=== PATIENT | female | born 1980 | race Hispanic/Latino ===

== ENCOUNTER 2017-08-21 03:13 | Inpatient (IN) | payer MEDICAID ==
--- NOTE | 2017-08-21 04:08 | ED PDOC ---
Addendum entered and electronically signed by Shola Jose MD 08/21/17 06:35: - PA / STUDENT DEAN / Resident Statement STEPHENIE has reviewed & agrees with the documentation as recorded. STEPHENIE has examined the patient and agrees with the treatment plan. Original Note: Arrival/HPI - General Historian: Patient - History of Present Illness Time/Duration: 24 hours Symptom Onset: Gradual Symptom Course: Unchanged Activities at Onset: Rest, Light Context: Home - General Chief Complaint: Psychiatric Evaluation Time Seen by Provider: 08/21/17 03:47 - History of Present Illness Narrative History of Present Illness (Text): 08/21/17 03:58 Ms. Meneses is a 37 year old female with no significant past medical history presents to the [facility] for anxiety. Patient reports that she has been anxious for several days about "getting back together with my family". Patient offered no further details about this topic. She reports that she has been living in a usp in [place] for the past two months. She denies any homicidal or suicidal ideation, depressed mood, or any auditory/visual hallucinations. She also denies fever, chills, headache, changes in his vision, chest pain, palpitations, SOB, cough, abdominal pain, N/V/D/C, burning/pain with urination, rashes, or any numbness/tingling/weakness of any extremity. ( Simón Mcdonald) Past Medical History - Provider Review Nursing Documentation Reviewed: Yes - Travel History Have you recently traveled outside [place] w/in the past 3 mons?: No - Past History Past History: No Previous - Infectious Disease Hx of Infectious Diseases: None - Tetanus Immunization Tetanus Immunization: Unknown - Reproductive Menopause: No - Cardiac Hx Cardiac Disorders: No - Pulmonary Hx Respiratory Disorders: No - Neurological Hx Neurological Disorder: No - HEENT Hx HEENT Disorder: No - Renal Hx Renal Disorder: No - Endocrine/Metabolic Hx Endocrine Disorders: No - Hematological/Oncological Hx Blood Disorders: No - Integumentary Hx Dermatological Disorder: No - Musculoskeletal/Rheumatological Hx Musculoskeletal Disorders: No - Gastrointestinal Hx Gastrointestinal Disorders: No - Genitourinary/Gynecological Hx Genitourinary Disorders: No - Psychiatric Hx Psychophysiologic Disorder: Yes Hx Anxiety: Yes Hx Substance Use: No - Surgical History Hx Section: Yes (x 2) Family/Social History - Physician Review Nursing Documentation Reviewed: Yes Family/Social History: No Known Family HX Smoking Status: Never Smoked Hx Alcohol Use: No Hx Substance Use: No Allergies/Home Meds Allergies/Adverse Reactions: Allergies No Known Allergies Allergy (Verified 08/21/17 03:47) Home Medications: Home Meds Medication Instructions Recorded Confirmed No Known Home Med 08/21/17 08/21/17 Review of Systems - Physician Review All systems were reviewed & negative as marked: Yes - Review of Systems Constitutional: Normal. absent: Fevers, Night Sweats Eyes: Normal. absent: Vision Changes ENT: Normal Respiratory: Normal. absent: SOB, Cough Cardiovascular: Normal. absent: Chest Pain, Palpitations Gastrointestinal: Normal. absent: Abdominal Pain, Constipation, Diarrhea, Nausea, Vomiting Genitourinary Female: Normal. absent: Dysuria Musculoskeletal: Normal. absent: Back Pain, Neck Pain Skin: Normal. absent: Rash Neurological: Normal. absent: Headache Endocrine: Normal Hemo/Lymphatic: Normal Psychiatric: Anxiety. absent: Normal, Depression, Suicidal Ideation Physical Exam Vital Signs Reviewed: Yes Temperature: Afebrile Blood Pressure: Normal Pulse: Regular Respiratory Rate: Normal Appearance: Positive for: Well-Appearing, Non-Toxic, Comfortable Pain Distress: None Mental Status: Positive for: Alert and Oriented X 3 - Systems Exam Head: Present: Atraumatic, Normocephalic Pupils: Present: PERRL Extroacular Muscles: Present: EOMI Conjunctiva: Present: Normal Mouth: Present: Moist Mucous Membranes Neck: Present: Normal Range of Motion, Trachea Midline. No: Meningeal Signs, MIDLINE TENDERNESS, Paraspinal Tenderness, JVD, Lymphadenopathy Respiratory/Chest: Present: Clear to Auscultation, Good Air Exchange. No: Respiratory Distress, Accessory Muscle Use, Wheezes, Decreased Breath Sounds, Rales, Retracting, Rhonchi, Tachypneic Cardiovascular: Present: Regular Rate and Rhythm, Normal S1, S2, Peripheal Pulses Present. No: Murmurs, Irregular Rhythm, Tachycardic, Bradycardic, Rub, Gallop, Muffled Abdomen: Present: Normal Bowel Sounds. No: Tenderness, Distention, Peritoneal Signs Back: Present: Normal Inspection Upper Extremity: Present: Normal Inspection. No: Cyanosis, Edema Lower Extremity: Present: Normal Inspection. No: Edema Neurological: Present: GCS=15, CN II-XII Intact, Speech Normal Skin: Present: Warm, Dry, Normal Color. No: Rashes Psychiatric: Present: Alert, Oriented x 3, Normal Insight, Normal Concentration , Anxious. No: Agitated, Depressed Mood, Suicidal Ideation, Homicidal Ideation , Delusional, Hallucinations, Intoxicated, Lethargic Vital Signs Temp Pulse Resp BP Pulse Ox 08/21/17 03:20 98.2 F 86 19 105/64 97 Medical Decision Making ED Course and Treatment: Patient Seen With Resident: In agreement with resident note which contains more details about the patient. Patient was seen and evaluated with resident. Came up with plan and treatment together. A 37 year old female with anxiety. Additional HPI as noted by resident. Patient is anxious on physical exam. Ordered EKG, labs and urinalysis. PES will evaluate patient. (Shola Jose) 08/21/17 04:10 Impression: 37 year old female with no significant past medical history presents to the [facility] for anxiety Plan: -PES evaluation with appropriate labs ordered -Reassess and disposition Prior Visits: No previous visits 08/21/17 06:13 PES reports that patient will sign in to psychiatric unit voluntarily. Pending approval from psych attending. (Simón Mcdonald) - Lab Interpretations Lab Results: 08/21/17 04:38 08/21/17 04:38 Lab Results 08/21/17 04:48: Urine Color Yellow, Urine Appearance Sl cloudy, Urine pH 6.0, Ur Specific [place] <= 1.005, Urine Protein Negative, Urine Glucose (UA) Negative, Urine Ketones Negative, Urine Blood Small H, Urine Nitrate Negative, Urine Bilirubin Negative, Urine Urobilinogen 0.2, Ur Leukocyte Esterase Moderate H, Urine RBC 0 - 2, Urine WBC 5 - 10, Ur Epithelial Cells 1 - 3, Urine Bacteria Few, Urine HCG, Qual Negative 08/21/17 04:48: Urine Opiates Screen Negative, Urine Methadone Screen Negative, Ur Barbiturates Screen Negative, Ur Phencyclidine Scrn Negative, Ur Amphetamines Screen Negative, U Benzodiazepines Scrn Negative, U Oth Cocaine Metabols Negative, U Cannabinoids Screen Negative 08/21/17 04:38: Alcohol, Quantitative < 10 08/21/17 04:38: Salicylates < 1 L, Acetaminophen < 10.0 L 08/21/17 04:38: Sodium 140, Potassium 3.4 L, Chloride 104, Carbon Dioxide 28, Anion Gap 12, BUN 11, Creatinine 0.7, Est GFR ( Amer) > 60, Est GFR (Non- Af Amer) > 60, Random Glucose 105, Calcium 9.1, Total Bilirubin 0.4, AST 18, ALT 21, Alkaline Phosphatase 44, Total Protein 6.7, Albumin 3.9, Globulin 2.9, Albumin/Globulin Ratio 1.4 08/21/17 04:38: WBC 10.1, RBC 3.85, Hgb 12.1, Hct 36.3, MCV 94.3, MCH 31.4, MCHC 33.3, RDW 12.6, Plt Count 289, MPV 10.6, Gran % 70.0 H, Lymph % (Auto) 22.5 , [place] % (Auto) 4.8, Eos % (Auto) 2.3, Baso % (Auto) 0.4, Gran # 7.06 H, Lymph # 2.3, [place] # 0.5, Eos # 0.2, Baso # 0.04 Disposition/Present on Arrival - Present on Arrival Any Indicators Present on Arrival: No History of DVT/PE: No History of Uncontrolled Diabetes: No Urinary Catheter: No History of Decub. Ulcer: No History Surgical Site Infection Following: Obstetrical/Gynecological Surgery - Disposition Have Diagnosis and Disposition been Completed?: Yes Disposition Time: 06:15 Patient Plan: Admission - Disposition Diagnosis: Anxiety Disposition: HOSPITALIZED Condition: STABLE Forms: [employer] (Nepali)
[2017-08-21 04:49] LABS: BASO # 0.04 K/mm3 (0.0-2.0); BASO % 0.4 % (0.0-3.0); EOS # 0.2 (0.0-0.7); EOS % 2.3 % (1.5-5.0); GRAN # 7.06 (1.4-6.5); HEMATOCRIT 36.3 % (36.0-48.0); LYMPH # 2.3 (1.2-3.4); LYMPH % 22.5 % (22.0-35.0); MEAN CELL VOLUME 94.3 fl (80.0-105.0); MEAN CORPUSCULAR HEMOGLOBIN 31.4 pg (25.0-35.0); MEAN CORPUSCULAR HGB CONC 33.3 g/dl (31.0-37.0); MEAN PLATELET VOLUME 10.6 fl (7.0-11.0); MONO # 0.5 (0.1-0.6); MONO % 4.8 % (1.0-6.0); RED CELL DISTRIBUTION WIDTH 12.6 % (11.5-14.5); WHITE BLOOD COUNT 10.1 10^3/ul (4.5-11.0)
[2017-08-21 05:03] LABS: ALB/GLOB RATIO 1.4 (1.1-1.8); ALKALINE PHOSPHATASE 44 U/L (38-126); ALT/SGPT 21 U/L (7-56); AST/SGOT 18 U/L (14-36); BILIRUBIN,TOTAL 0.4 mg/dL (0.2-1.3); BLOOD UREA NITROGEN 11 mg/dL (7-21); CALCIUM 9.1 mg/dL (8.4-10.5); CARBON DIOXIDE 28 mmol/L (21-33); CHLORIDE 104 mmol/L (98-107); GFR AFRICAN-AMERICAN > 60; GLUCOSE,RANDOM 105 mg/dL (70-110); POTASSIUM 3.4 mmol/L (3.6-5.0); SODIUM 140 mmol/L (132-148); TOTAL PROTEIN 6.7 g/dL (5.8-8.3)
[2017-08-21 05:07] LABS: URINE BILIRUBIN NEGATIVE (NEGATIVE); URINE BLOOD SMALL (NEGATIVE); URINE GLUCOSE (UA) NEGATIVE (NEGATIVE); URINE KETONE NEGATIVE (NEGATIVE); URINE LEUKOCYTE ESTERASE MODERATE Leu/uL (NEGATIVE); URINE PROTEIN NEGATIVE mg/dL (<30 mg/dL); URINE UROBILINOGEN 0.2 E.U./dL (<1 E.U./dL)
[2017-08-21 05:14] LABS: URINE APPEARANCE SL CLOUDY (CLEAR); URINE COLOR YELLOW (YELLOW)
[2017-08-21 05:22] LABS: URINE BACTERIA FEW (NEG); URINE RBC 0 - 2 /hpf (0-2)
[2017-08-21 08:10] VITALS: O2SAT 98
--- NOTE | 2017-08-21 09:51 | CARD ---
APPROVED REPORT EKG Measurement Heart [id number] HI [id number] <Conclusion> Normal sinus rhythm Possible Left atrial enlargement Nonspecific T wave abnormality Abnormal ECG
[2017-08-21] MEDS ORDERED: Magnesium Hydroxide Susp 30 ml UD PO PRN (10:08)
[2017-08-21] MEDS ORDERED: Alum-Mag Hydrox-Simethicone Susp (30 mL) PO PRN (10:08)
--- NOTE | 2017-08-21 10:17 | PCM.BM ---
<Jason Hines - Last Filed: 08/21/17 10:14> Treatment Plan Problems - Problems identified on initial assessmt delusional Date Initiated: 08/21/17 Time Initiated: 10:00 Assessment reference: NA Status: Active Priority: 1 Comment: Hearing voices Depression Date Initiated: 08/21/17 Time Initiated: 10:00 Assessment reference: NA Status: Active Priority: 2 Comment: Ineffective coping,hopeless and helpless medications non-adherence Date Initiated: 08/21/17 Time Initiated: 10:00 Assessment reference: NA Status: Active Priority: 3 Comment: no taking her medications Altered sleep patter Date Initiated: 08/21/17 Time Initiated: 10:00 Assessment reference: NA Status: Active Priority: 4 Treatment assets and liabiliti Patient Assests: ADL independent, negotiates basic needs Patient Liabilities: poor support system, relationship conflicts - Milieu Protocol Maintain good personal hygiene: daily Remind patient to perform daily oral care , daily Assist patient to perform ADL's, every shift Encourage regular showers Conduct patient checks and document Observation sheet: Q15 minutes Maintain personal safety: every shift Educate patient to report safety concerns to staff, every shift Monitor environment for contraband/sharps Medication safety: Monitor for expected outcome, potential side effects: every shift, Assess barriers to learning: every shift, Assess readiness for medication education: every shift Discharge/Continuing Care - Education Needs Education Needs: Patient Medication, Patient Diagnosis/Disease Process, Patient Coping Skills, Patient Community resources, Patient Activities of Daily Living, Patient Personal Hygiene/Grooming, Patient Aftercare Safety Plan - Discharge Discharge Criteria: Tolerates medication w/o severe side effects, Normal sleep pattern, Ability to care for self, Reduction of target symptoms <Candice Bonilla - Last Filed: 08/22/17 16:33> Family Contact Family involvement: Famliy/SO not involved - Outside Agency [facility] involvment: Information-sharing Agency contact name: [facility] - Goals for Treatment Patient goals for treatment: "To find housing."
--- NOTE | 2017-08-21 15:22 | PCM.PSYCH ---
Initial Psychiatric Evaluation - Initial Psychiatric Evaluation Type of Admission: Voluntary Legal Status: Capacity Chief Complaint (in patient's own words): "I stopped taking my medication 2 weeks ago" Patient's Reaction to Hospitalization: "I am so tired, do we really have to do this now...I haven't been sleeping" History of Present Illness and Precipitating Events: NOTE: Patient is a poor historian, is tired and just short of uncooperative. Patient is a 37 year old female admitted from the ER for complaint of anxiety. Patient indicates that she stopped taking her psychiatric medication 2 weeks ago. She sees a Dr Langley from [facility] Her diagnosis are "Bipolar and Paranoid Schizophrenia". She has been stabilized for a long period of time on Zyprexa 10mg 1 BID. She has been sober off alcohol for the last 64 days, sober off diet pills (Zantrax) for 64 days also. She goes to 3x a week and has a sponsor. She has a history of multiple hospitalizations starting at age 15, and 3 overdoses on pills. Alcohol has played a part in all of her hospitalizations and suicide attempts. She denies any medical issues. She indicates all of her relatives use drugs and alcohol. Patient declines to answer further questions at this time. Patient is somewhat groggy, but oriented x3 eye contact is poor, behavior is just short of cooperative. She is not hostile or argumentative just indicates prior to admission she had not been sleeping and she was very fatigued. Speech rate and volume are within normal limits, mood is blunted, affect is constricted though she smiles when she shares her sobriety dates, appropriately. She denies being suicidal or homicidal, she denies the presence of hallucinations, delusions, or paranoia. She indicates her focus and concentration are off as well as her sleep and her appetite. Plan: Milieu/structure/supportive therapy Medical consult appreciated, see medical team note for more detailed info consultation for discharge plan and social issues Med management Family involvement Follow up on labs Will monitor closely evaluation for d/c planning Pt was educated about risk/benefits and alternatives of medications, coping strategies (safety plan, suicide prevention), relapse prevention, importance of follow up with psychiatrist and therapist, stay away from drugs/alcohol/smoking Diagnostic Impression: Depressive Disorder NOS Current Medications: Active Medications Generic Name Dose Route Start Last Admin Trade Name Freq PRN Reason Stop Dose Admin Acetaminophen 650 mg 08/21/17 10:08 Tylenol 325mg Tab PO Q4 PRN pain Al Hydrox/Mg Hydrox/Simethicone 30 ml 08/21/17 10:08 Maalox Plus 30 Ml PO DAILY PRN Upset Stomach Lorazepam 1 mg 08/21/17 09:56 Ativan PO Q6H PRN Agitation Protocol Magnesium Hydroxide 30 ml 08/21/17 10:08 Milk Of Magnesia PO DAILY PRN Constipation Olanzapine 10 mg 08/21/17 10:00 08/21/17 10:18 Zyprexa PO 10 mg BID KIRK Administration Protocol Past Psychiatric History - Past Psychiatric History Pertinent Medical Hx (Current Medical&Sleep Prob, Allergies): Allergies Allergy/AdvReac Type Severity Reaction Status Date / Time No Known Allergies Allergy Verified 08/21/17 11:52 OLANZapine [ZyPREXA] 10 mg PO BID 08/21/17
[2017-08-22] MEDS ORDERED: Potassium Chloride 20 mEq ER Tab PO ONE (07:16)
[2017-08-22 07:56] LABS: CHOLESTEROL 269 mg/dL (130-200)
[2017-08-22 08:18] LABS: THYROID STIMULATING HORMONE 0.59 mIU/mL (0.46-4.68)
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
[2017-08-22 09:45] LABS: BLOOD UREA NITROGEN 12 mg/dL (7-21); CALCIUM 9.5 mg/dL (8.4-10.5); CARBON DIOXIDE 27 mmol/L (21-33); CHLORIDE 107 mmol/L (98-107); GFR AFRICAN-AMERICAN > 60; GLUCOSE,RANDOM 85 mg/dL (70-110); POTASSIUM 4.2 mmol/L (3.6-5.0); SODIUM 142 mmol/L (132-148)
--- NOTE | 2017-08-23 08:30 | PCM.PYCHPN ---
Psychiatric Progress Note - Psychiatric Progress Note Patient seen today, length of contact: 25 min Patient Chief Complaint: feeling better, more hopeful, anxiety persists Problems Identified/Issues Discussed: I reviewed assessment and recent notes. Patient was seen at bedside. She is unkempt and oriented x3. Patient indicates that she is feeling better, more hopeful. Anxiety persists. Her affect is constricted and tired. Thought process is coherent. Patient denies any perceptual disturbance and delusions were not elicited. She doesn't appear paranoid. Patient denies any new side effects, discomfort or pain. She slept well last night. Staff notes indicate that patient has been in control. Refused group due to exhaustion and stays in her room. Compliant with medications. There were no behavioral issues overnight. Diagnostic Results: Schizoaffective Disorder (Paranoid Schizophrenia/Bipolar) Medication Change: No Medical Record Reviewed: Yes Mental Status Examination - Cognitive Function Orientation: Person, Place Attention: WNL - Mood Mood: Anxious (feeling better, more hopeful, anxiety persists) - Affect Affect: Constricted - Speech Speech: Appropriate - Formal Thought Process Formal Thought Process: No Impairment - Suicidal Ideation Suicidal Ideation: No - Homicidal Ideation Homicidal Ideation: No Goal/Treatment Plan - Goal/Treatment Plan Progress Toward Problem(s) and Goals/Treatment Plan: * c/w group, milieu and supportive tx * c/w Zyprexa 10 mg po bid for hx of schizophrenia * Appreciate f/u by Dr. Salamanca/Dr. Sheehan PGY2 on 08/22/17~please see medical note for more details * Vitals reviewed and noted below: Selected Entries 08/22/17 08/22/17 06:49 15:00 Temperature 98.3 F Pulse Rate 66 75 Respiratory 20 Rate Blood Pressure 97/68 L 111/75 * New weekend labs thus far Laboratory Results - last 24 hr 08/22/17 08/22/17 07:30 07:30 Sodium 142 Potassium 4.2 Chloride 107 Carbon Dioxide 27 Anion Gap 13 BUN 12 Creatinine 0.9 Est GFR ( Amer) > 60 Est GFR (Non-Af Amer) > 60 Random Glucose 85 Calcium 9.5 RPR Nonreactive
--- NOTE | 2017-08-24 08:45 | PCM.PYCHPN ---
Psychiatric Progress Note - Psychiatric Progress Note Patient seen today, length of contact: 25 min Patient Chief Complaint: "feeling better, pretty good" Problems Identified/Issues Discussed: I reviewed recent notes and patient was seen at bedside. She is fairly groomed m and oriented x3. Patient indicates that she is "feeling better, pretty good". She is more hopeful. Anxiety persists and patient is worried about where she will live with her 3 year old daughter, Tammy after discharge. Her affect is more related and reactive than yesterday. Thought process is coherent. Patient denies any perceptual disturbance and delusions were not elicited. She doesn't appear paranoid. Patient denies any new side effects, discomfort or pain. She slept well last night. Staff notes indicate that patient has been in control. Seems anxious and paranoid. Some delusions were noted by nursing though patient can be redirected. There were no behavioral issues over the weekend. Diagnostic Results: Schizoaffective Disorder (Paranoid Schizophrenia/Bipolar) Medication Change: No Medical Record Reviewed: Yes Mental Status Examination - Cognitive Function Orientation: Person, Place Attention: WNL - Mood Mood: Anxious ( worried about disposition), Other ("feeling better, pretty good ") - Affect Affect: Constricted (more related and reactive) - Speech Speech: Appropriate - Formal Thought Process Formal Thought Process: No Impairment, Delusions (noted by staff), Paranoia ( noted by staff) - Suicidal Ideation Suicidal Ideation: No - Homicidal Ideation Homicidal Ideation: No Goal/Treatment Plan - Goal/Treatment Plan Progress Toward Problem(s) and Goals/Treatment Plan: * c/w group, milieu and supportive tx * c/w Zyprexa 10 mg po bid for hx of schizophrenia * Appreciate f/u by Dr. Salamanca/Dr. Sheehan PGY2 on 08/22/17~please see medical note for more details * Vitals reviewed and noted below: Selected Entries 08/23/17 08/23/17 06:50 16:10 Temperature 98.1 F Pulse Rate 68 91 H Respiratory 20 Rate Blood Pressure 94/61 L 115/81 * New weekend labs thus far Laboratory Results - last 24 hr 08/22/17 08/22/17 07:30 07:30 Sodium 142 Potassium 4.2 Chloride 107 Carbon Dioxide 27 Anion Gap 13 BUN 12 Creatinine 0.9 Est GFR ( Amer) > 60 Est GFR (Non-Af Amer) > 60 Random Glucose 85 Calcium 9.5 RPR Nonreactive
--- NOTE | 2017-08-25 21:42 | PCM.PYCHPN ---
Psychiatric Progress Note - Psychiatric Progress Note Patient seen today, length of contact: 25 min Patient Chief Complaint: "I am doing better, I just want my daughter back" Problems Identified/Issues Discussed: Patient is affectively improved, hygiene and grooming are appropriate. Patient continues anxious in regards to discharge plans and where she will live with her daughter on discharge. She is childlike and concrete in conversation. She participates in unit activities and appears to enjoy contact. The staff have noticed some confusion periodically but she responds to redirection easily. Medication Change: No Medical Record Reviewed: Yes Mental Status Examination - Cognitive Function Orientation: Person, Place Attention: WNL - Mood Mood: Anxious ( worried about disposition), Other ("feeling better, pretty good ") - Affect Affect: Constricted (more related and reactive) - Speech Speech: Appropriate - Formal Thought Process Formal Thought Process: No Impairment, Delusions (noted by staff), Paranoia ( noted by staff) - Suicidal Ideation Suicidal Ideation: No - Homicidal Ideation Homicidal Ideation: No
[2017-08-26 07:02] VITALS: BP 73/52; PULSE 69; RESP 20; TEMP 98.1
--- NOTE | 2017-08-27 10:03 | PCM.PYCHPN ---
Psychiatric Progress Note - Psychiatric Progress Note Patient seen today, length of contact: 25 min Patient Chief Complaint: "I get confiused sometimes" Problems Identified/Issues Discussed: Note: This note is for a contact which took place on 08/22/2017 Patient is seen today in treatment team. She is sad and tearful in discussion of the events that lead to her loss of custody of her daughter. [facility] is involved. Hospitalization was precipitated by patient stopping her medication. She is concrete and simplistic in conversation, is interested in concrete social media specialist primarily such as arranging housing and assistance. She is invested in remaining sober, affectively improves when talking about her sobriety. Staff have noticed some confusion periodically but she is easily directable. Medication Change: No Medical Record Reviewed: Yes Mental Status Examination - Cognitive Function Orientation: Person, Place Attention: WNL - Mood Mood: Anxious ( worried about disposition), Other ("feeling better, pretty good ") - Affect Affect: Constricted (more related and reactive) - Speech Speech: Appropriate - Formal Thought Process Formal Thought Process: No Impairment, Delusions (noted by staff), Paranoia ( noted by staff) - Suicidal Ideation Suicidal Ideation: No - Homicidal Ideation Homicidal Ideation: No
--- NOTE | 2017-08-27 10:27 | PCM.PYCHDC ---
Mental Status Examination - Mental Status Examination Orientation: Person, Place, Situation, Time Memory: Intact Mood: Neutral Affect: Broad Speech: Appropriate Attention: WNL Concentration: WNL Association: WNL Fund of Knowledge: Poor Formal Thought Process: No Impairment Description of patient's judgement and insight: Patient denies being suicidal or homicidal and is in no imminent danger of hurting herself or others. Discharge Summary - Discharge Note Reason for Hospitalization: "I am so tired, do we really have to do this now...I haven't been sleeping" Consultations:: List each consultation separately and include: 1. Reason for request. 2. Findings. 3. Follow-up Summary of Hospital Course include:: 1. Description of specific treatment plan utilized for patients during their course of treatmen. 2. Summarize the time- course for resolution of acute symptoms and/or regressed behaviors. 3. Describe issues identified and worked on during hospitalization. 4. Describe medication utilized. 5. Describe medical problems identified and treated. 6. Reassessment of suicide risk Summary of Hospital Course: NOTE: Patient is a poor historian, is tired and just short of uncooperative. Patient is a 37 year old female admitted from the ER for complaint of anxiety. Patient indicates that she stopped taking her psychiatric medication 2 weeks ago. She sees a Dr Langley from [facility]. Her diagnosis are "Bipolar and Paranoid Schizophrenia". She has been stabilized for a long period of time on Zyprexa 10mg 1 BID. She has been sober off alcohol for the last 64 days, sober off diet pills (Zantrax) for 64 days also. She goes to 3x a week and has a sponsor. She has a history of multiple hospitalizations starting at age 15, and 3 overdoses on pills. Alcohol has played a part in all of her hospitalizations and suicide attempts. She denies any medical issues. She indicates all of her relatives use drugs and alcohol. Patient declines to answer further questions at this time. Patient is somewhat groggy, but oriented x3 eye contact is poor, behavior is just short of cooperative. She is not hostile or argumentative just indicates prior to admission she had not been sleeping and she was very fatigued. Speech rate and volume are within normal limits, mood is blunted, affect is constricted though she smiles when she shares her sobriety dates, appropriately. She denies being suicidal or homicidal, she denies the presence of hallucinations, delusions, or paranoia. She indicates her focus and concentration are off as well as her sleep and her appetite. Plan: Milieu/structure/supportive therapy Medical consult appreciated, see medical team note for more detailed info consultation for discharge plan and social issues Med management Family involvement Follow up on labs Will monitor closely evaluation for d/c planning Pt was educated about risk/benefits and alternatives of medications, coping strategies (safety plan, suicide prevention), relapse prevention, importance of follow up with psychiatrist and therapist, stay away from drugs/alcohol/smoking - Final Diagnosis (DSM 5) Condition upon Discharge: STABLE Disposition: HOME/ ROUTINE Prescriptions/Medication Reconciliation: Nitrofurantoin Macrocrystals [Macrobid] 100 mg PO Q12 #14 cap OLANZapine [Zyprexa] 10 mg PO BID #14 tab
== END 2017-08-26 15:32 | disposition home or self-care (01) | DRG 430 ==
LOC: ED 03:13 → ERH 06:30 → PSYC 09:01
PROVIDERS: ADMIT Psychiatry & Neurology Psychiatry; ATTEND Psychiatry & Neurology Addiction Medicine
DX: F25.9 Schizoaffective disorder, unspecified (principal); N39.0 Urinary tract infection, site not specified; E87.6 Hypokalemia; F31.9 Bipolar disorder, unspecified; E78.5 Hyperlipidemia, unspecified; Z59.0 Homelessness